=== PATIENT | male | born 1975 | race Caucasian/White ===

== ENCOUNTER 2018-08-10 07:50 | Emergency (ER) | payer SELFPAY | END 2018-08-10 08:33 | disposition home or self-care (01) | LOC: MED 07:50 | DX: S50.861A Insect bite (nonvenomous) of right forearm, initial encounter (principal); I10 Essential (primary) hypertension; F17.200 Nicotine dependence, unspecified, uncomplicated; W57.XXXA Bitten or stung by nonvenomous insect and other nonvenomous arthropods, initial encounter; Y93.89 Activity, other specified; Y92.89 Other specified places as the place of occurrence of the external cause; Y99.8 Other external cause status | CPT/HCPCS: 99281 ==

== ENCOUNTER 2018-11-08 17:27 | Emergency (ER) | payer SELFPAY ==
[~2018-11-08] VITALS: Ht 160 cm; Wt 89.1 kg
[2018-11-08 18:11] VITALS: BP 178/117
--- NOTE | 2018-11-08 18:17 | NUR ---
PT AMBULATED TO BED 3 WITH STEADY GAIT
--- NOTE | 2018-11-08 18:26 | NUR ---
PATIENT PRESENTS TO ED WITH C/O LEFT ELBOW PAIN. PT STATES WOUND STARTED A MOLE AND WAS TORN OFF MULTIPLE TIMES. DENIES N/V/D; SKIN IS PINK/WARM/DRY; AAOX4 WITH EVEN AND STEADY GAIT; LUNGS CLEAR BL; HR EVEN AND REGULAR; PT DENIES ANY FEVER, CP, SOB, OR COUGH AT THIS TIME; PATIENT STATES PAIN OF 9/10 AT THIS TIME; VSS; PATIENT POSITIONED FOR COMFORT; HOB ELEVATED; BEDRAILS UP X2; BED DOWN. ER MD MADE AWARE OF PT STATUS.
[2018-11-08] MEDS ORDERED: LIDOCAINE 1% 500 MG/50 ML VIAL INJ SCH (18:35)
[2018-11-08] MEDS ORDERED: LIDOCAINE MPF 1% - 5 mL VIAL 5 ML ONE (18:53)
--- NOTE | 2018-11-08 19:07 | NUR ---
Note undone in [facility] - 11/08/18 at 1915 by PARRISHKJY SBAR REPORT GIVEN TO ACE BUSTAMANTE AT PT BEDSIDE. S/P LEFT ELBOW DEBRIDEMENT EXCESS TISSUE. DRESSING INTACT. RESTING IN BED, NO ACUTE DISTRESS NOTED. Addendum: 11/08/18 at 1915 by PARRISHKJY Amendment undone in [facility] - 11/08/18 at 1915 by [email or web address] Patient discharged with v/s stable. Written and verbal after care instructions given and explained. Patient verbalized understanding. Ambulatory with steady gait. All questions addressed prior to discharge. Advised to follow up with PMD.
[2018-11-08 19:15] VITALS: BP 178/117
--- NOTE | 2018-11-08 19:16 | NUR ---
Patient discharged with v/s stable. Written and verbal after care instructions given and explained. Patient verbalized understanding. Ambulatory with steady gait. All questions addressed prior to discharge. Advised to follow up with PMD.
== END 2018-11-08 19:15 | disposition home or self-care (01) ==
LOC: MED 17:27
DX: L92.9 Granulomatous disorder of the skin and subcutaneous tissue, unspecified (principal); I10 Essential (primary) hypertension
CPT/HCPCS: 11401; 99284; J2001; 99283; 99285

== ENCOUNTER 2019-01-23 15:36 | Emergency (ER) | payer SELFPAY ==
[~2019-01-23] VITALS: Ht 160 cm; Wt 83.9 kg
[2019-01-23 15:42] VITALS: BP 174/103
--- NOTE | 2019-01-23 15:42 | NUR ---
Patient ambulated to bed 6. RN evaluating patient at bedside.
--- NOTE | 2019-01-23 16:00 | NUR ---
PT PRESENTS TO ED WITH C/O "FLU LIKE SYMPTOMS". 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 I WAS WAY IN THERE. I FEEL LIKE I HAVE THE FLU." PT STATES THAT HE HAS HAD A RUNNY NOSE, DIZZINESS, AND SNEEZED 10 TIMES IN THE LAST 1.5 HOURS. PT STATES THAT HE HAS AN UPSET STOMACH AND HAS BEEN EXPERIENCING N/V/D SINCE YESTERDAY. BOWEL SOUNDS ACTIVE IN ALL QUADRANTS. PT DENIES CP AND SOB AT THIS TIME. PT STATES THAT HE HAS BACK PAIN AND RATES THE PAIN 2/10 AT THIS TIME. SKIN IS WARM, PINK, AND DRY. PT PRESENTS WITH A CLEAR SPEECH AND IS CONVERSING APPROPRIATELY. PT HAS A HX OF HTN AND STATES THAT HE HASNT BEEN TAKING HIS MEDICATION PRESCRIBED. PT POSIIONED FOR COMFORT IN CHAIR. ER MD TO SEE PT. FERNANDO HX: HTN RX: PT IS NOT COMPLIANT WITH HTN MEDICATION.
--- NOTE | 2019-01-23 16:13 | NUR ---
Dr. Larios is evaluating the patient at bedside.
[2019-01-23] MEDS ORDERED: NACL 0.9% 1,000 ML IV ONE (16:20)
--- NOTE | 2019-01-23 16:30 | NUR ---
X-Ray at bedside.
--- NOTE | 2019-01-23 16:37 | NUR ---
INFLUENZA SWAB COLLECTED AND GIVEN TO LAB.
--- NOTE | 2019-01-23 17:05 | NUR ---
BLOOD SAMPLE COLLECTED AND GIVEN TO LAB
[2019-01-23 17:12] LABS: BASOPHILS # (AUTO) 0.1 K/uL (0.00-0.22); BASOPHILS % (AUTO) 0.6 % (0.0-2.0); EOSINOPHILS # (AUTO) 0.1 K/uL (0-0.4); EOSINOPHILS % (AUTO) 0.8 % (0.0-4.0); HEMATOCRIT 42.1 % (36-52); HEMOGLOBIN 14.2 g/dL (12.0-18.0); LYMPHOCYTES # (AUTO) 2.4 K/uL (2.0-11.5); LYMPHOCYTES % (AUTO) 22.4 % (20.5-51.1); MEAN CORPUSCULAR HEMOGLOBIN 29 pg (27-31); MEAN CORPUSCULAR HGB CONC 34 g/dL (33-37); MEAN CORPUSCULAR VOLUME 87.5 fL (80-94); MONOCYTES # (AUTO) 1.2 K/uL (0.8-1.0); MONOCYTES % (AUTO) 11.3 % (1.7-9.3); NEUTROPHILS # (AUTO) 6.9 K/uL (1.8-7.7); NEUTROPHILS % (AUTO) 64.9 % (42.2-75.2); PLATELET COUNT (AUTO) 280 K/uL (140-450); RED BLOOD CELL COUNT(AUTO) 4.81 MIL/uL (4.20-6.10); RED CELL DISTRIBUTION WIDTH 13.7 % (11.6-13.7); WHITE BLOOD COUNT (AUTO) 10.6 K/uL (4.8-10.8)
--- NOTE | 2019-01-23 17:22 | NUR ---
Patient appears to be resting comfortably in bed reading a book. Respirations even and unlabored. Will continue to monitor.
[2019-01-23 17:28] LABS: ANION GAP 17.9 (8-16); CARBON DIOXIDE 23.2 mmol/L (21-32); CREATININE 1.4 mg/dL (0.7-1.3); POTASSIUM 4.1 mmol/L (3.5-5.1)
[2019-01-23 17:33] LABS: ALBUMIN 4.2 g/dL (3.4-5.0); TOTAL BILIRUBIN 0.5 mg/dL (0.0-1.0)
[2019-01-23 18:02] VITALS: BP 166/98
== END 2019-01-23 18:02 | disposition home or self-care (01) ==
LOC: MED 15:36
DX: R53.1 Weakness (principal); R42 Dizziness and giddiness; F17.210 Nicotine dependence, cigarettes, uncomplicated; I10 Essential (primary) hypertension; Z71.6 Tobacco abuse counseling
CPT/HCPCS: 36415; 71045; 80053; 85025; 87804; 96360; 99284; J7030; Q0092

== ENCOUNTER 2020-07-18 19:54 | Emergency (ER) | payer SELFPAY ==
[~2020-07-18] VITALS: Ht 160 cm; Wt 81.6 kg
--- NOTE | 2020-07-18 19:56 | NUR ---
PT BENNIE BLS. TAKEN TO BED 6
[2020-07-18 20:00] VITALS: BP 154/112
--- NOTE | 2020-07-18 20:05 | NUR ---
Dr. Aguilera examining patient.
--- NOTE | 2020-07-18 20:15 | NUR ---
PT. IS A 44 Y/O MALE CAME IN VIA AMBULANCE WITH VAGUE COMPLAINTS STATING THAT HE HAS A BAD LIFE. PT. BEHAVIOR IS ERRATIC AND FIDGETY. PT. DENIES PAIN OR DISCOMFORT. SKIN IS PINK/WARM/DRY; PT DENIES ANY FEVER, CP, SOB, OR COUGH AT THIS TIME; PATIENT POSITIONED FOR COMFORT; HOB ELEVATED; BEDRAILS UP X2; BED DOWN. ER MD MADE AWARE OF PT STATUS. PMH: UNABLE TO OBTAIN ALLERGIES: FERNANDO
--- NOTE | 2020-07-18 20:38 | NUR ---
PT TAKEN TO CT
--- NOTE | 2020-07-18 20:47 | NUR ---
PT RETURN FROM CT
[2020-07-18 21:40] VITALS: BP 154/112
== END 2020-07-18 21:40 | disposition home or self-care (01) ==
LOC: MED 19:54
DX: S09.90XA Unspecified injury of head, initial encounter (principal); I10 Essential (primary) hypertension; F10.129 Alcohol abuse with intoxication, unspecified; X58.XXXA Exposure to other specified factors, initial encounter; Y93.89 Activity, other specified; Y92.098 Other place in other non-institutional residence as the place of occurrence of the external cause; Y99.8 Other external cause status
CPT/HCPCS: 70450; 99284

== ENCOUNTER 2021-11-12 15:43 | Emergency (ER) | payer SELFPAY ==
[~2021-11-12] VITALS: Ht 160 cm; Wt 78.0 kg
[2021-11-12 15:54] VITALS: BP 135/85
--- NOTE | 2021-11-12 16:03 | NUR ---
PT STATING THAT HE FEELS FINE AND HE WANTS TO TAKE A NAP, SEEN WALKING OUTSIDE ED
--- NOTE | 2021-11-12 16:03 | NUR ---
PATIENT LEFT WITHOUT BEING SEEN BY DR. CAMACHO. NO FURTHER CARE PROVIDED FOR PATIENT.
== END 2021-11-12 16:04 | disposition left against medical advice (07) ==
LOC: MED 15:43
DX: R42 Dizziness and giddiness (principal); F10.10 Alcohol abuse, uncomplicated; Z53.21 Procedure and treatment not carried out due to patient leaving prior to being seen by health care provider

== ENCOUNTER 2023-03-09 00:30 | Emergency (ER) | payer SELFPAY ==
[~2023-03-09] VITALS: Ht 165.1 cm; Wt 77.1 kg
[2023-03-09 00:48] VITALS: BP 174/102; PULSE 108; RESP 20; TEMP 98.1; O2SAT 95
== END 2023-03-09 01:30 | disposition left against medical advice (07) ==
LOC: MED 00:30
DX: R51.9 Headache, unspecified (principal); R50.9 Fever, unspecified; R06.02 Shortness of breath; Z53.21 Procedure and treatment not carried out due to patient leaving prior to being seen by health care provider
CPT/HCPCS: 99281

== ENCOUNTER 2023-08-23 18:54 | Emergency (ER) | payer SELFPAY ==
[~2023-08-23] VITALS: Ht 160 cm; Wt 86.2 kg
[2023-08-23 19:23] VITALS: BP 183/117; PULSE 92; RESP 18; TEMP 98.3; O2SAT 98
[2023-08-23 20:03] VITALS: BP 183/117; PULSE 92; RESP 18; TEMP 98.3; O2SAT 98
== END 2023-08-23 22:25 | disposition left against medical advice (07) ==
LOC: MED 18:54
DX: R22.42 Localized swelling, mass and lump, left lower limb (principal); Z53.21 Procedure and treatment not carried out due to patient leaving prior to being seen by health care provider

== ENCOUNTER 2023-11-04 23:25 | Emergency (ER) | payer SELFPAY ==
[~2023-11-04] VITALS: Ht 160 cm; Wt 122.9 kg
[2023-11-04 23:35] VITALS: BP 192/126; PULSE 90; RESP 18; TEMP 97.5; O2SAT 98
--- NOTE | 2023-11-04 23:42 | NUR ---
ambulated to lobby after triage
[2023-11-05 00:38] LABS: FLU A ANTIGEN negative (NEGATIVE); FLU B ANTIGEN NEGATIVE (NEGATIVE)
[2023-11-05 01:13] VITALS: BP 192/126; PULSE 90; RESP 18; TEMP 97.5; O2SAT 98
--- NOTE | 2023-11-05 01:13 | NUR ---
PATIENT LEFT WITHOUT BEING SEEN BY DR. gibbs. NO FURTHER CARE PROVIDED FOR PATIENT.
== END 2023-11-05 01:13 | disposition left against medical advice (07) ==
LOC: MED 23:25
DX: M79.10 Myalgia, unspecified site (principal); I10 Essential (primary) hypertension; Z20.822 Contact with and (suspected) exposure to COVID-19; Z53.21 Procedure and treatment not carried out due to patient leaving prior to being seen by health care provider

== ENCOUNTER 2023-11-05 23:55 | Emergency (ER) | payer SELFPAY ==
[~2023-11-05] VITALS: Ht 172.7 cm; Wt 63.5 kg
[2023-11-06 00:02] VITALS: BP 129/74; PULSE 90; RESP 14; TEMP 97.3; O2SAT 98
[2023-11-06] MEDS: LORazepam 2 MG/ML VIAL IM ONE (00:36)
[2023-11-06] MEDS: LORazepam 1 MG TAB PO ONE (00:36)
[2023-11-06 05:46] VITALS: BP 159/106; PULSE 89; RESP 15; TEMP 98.4; O2SAT 96
== END 2023-11-06 05:46 | disposition home or self-care (01) ==
LOC: MED 23:55
DX: F15.10 Other stimulant abuse, uncomplicated (principal); F10.10 Alcohol abuse, uncomplicated; I10 Essential (primary) hypertension; Y90.9 Presence of alcohol in blood, level not specified
CPT/HCPCS: 96372; 99283; J2060

== ENCOUNTER 2023-11-06 09:27 | Emergency (ER) | payer SELFPAY ==
[~2023-11-06] VITALS: Ht 160 cm; Wt 77.1 kg
[2023-11-06 09:35] VITALS: BP 163/100; PULSE 77; RESP 20; TEMP 97.4; O2SAT 95
== END 2023-11-06 10:09 ==
LOC: MED 09:27
DX: S00.01XA Abrasion of scalp, initial encounter (principal); I10 Essential (primary) hypertension; T73.0XXA Starvation, initial encounter; Y08.89XA Assault by other specified means, initial encounter; Y93.89 Activity, other specified; Y92.89 Other specified places as the place of occurrence of the external cause; Y99.8 Other external cause status
CPT/HCPCS: 99283